=== PATIENT | female | born 1965 | race Caucasian/White ===

== ENCOUNTER 2016-11-30 10:50 | Day surgery (SDC) | payer OTHER ==
[~2016-11-30 10:50] MED LIST: NEXIUM40 PO; NORITATE1% TOP; PROLOP100 PO; PROMETRIUM PO; RETIN A TOP; T PO; VIVELLE SY0.05 MG/24 TOP; X5 PO
[2016-12-09] MEDS ORDERED: COZ50 PO (13:38)
[2016-12-09] MEDS ORDERED: CLARITD PO (13:39)
== END 2016-11-30 13:30 | disposition home or self-care (01) ==
LOC: SDC 10:50
DX: Z53.8 Procedure and treatment not carried out for other reasons (principal); N20.0 Calculus of kidney; E78.5 Hyperlipidemia, unspecified; K21.9 Gastro-esophageal reflux disease without esophagitis; F41.9 Anxiety disorder, unspecified; F32.9 Major depressive disorder, single episode, unspecified; F41.0 Panic disorder [episodic paroxysmal anxiety]; Z87.440 Personal history of urinary (tract) infections; Z88.5 Allergy status to narcotic agent; Z79.899 Other long term (current) drug therapy; Z98.890 Other specified postprocedural states
CPT/HCPCS: 74000; 93005; J2250; J3010

== ENCOUNTER 2016-12-14 16:18 | Day surgery (SDC) | payer OTHER ==
--- NOTE | ~2016-12-14 | OP ---
Record Of Operation [facility] [address] [place]. [address] NAME: RL RODGERS : 67 STATUS : REG [facility]#: [id number] AGE: 51 ADM/REG DATE : 12/14/16 MR#: [id number] REPORT SERV DATE: 12/14/16 DICTATED BY: KELVIN MORAN JR. DATE: 12/14/16 REPORT STATUS : Draft TRANSCRIBED BY: MODL DATE: 12/14/16 DATE OF PROCEDURE: 12/14/2016 SURGEON: Kelvin Moran M.D. PREOPERATIVE DIAGNOSIS: Left renal pelvic stone 1 cm in size. POSTOPERATIVE DIAGNOSIS: Left renal pelvic stone 1 cm in size. PROCEDURE PERFORMED: Cystoscopy, left retrograde pyelogram, dilation of left ureteral orifice, left ureteroscopy, with laser ablation of left renal stone, and double-J stent placement. COMPLICATIONS: None. CONSULTATIONS: None. ANESTHESIA: General with a laryngeal mask airway. SPECIMENS: Renal stone fragments. DRAINS: 6 x 26 cm [place] inlay stent without string. ESTIMATED BLOOD LOSS: None. INDICATION: Mrs. Rodgers is a 51-year-old female, who was found to have a radiopaque 1 cm renal pelvic stone. We attempted two times to do lithotripsy, however, her blood pressure is been poorly controlled even with continued medical management. She is seen her PCP recently and is still been unable to get her blood pressure down and to a reasonable level for lithotripsy. Her blood pressure today was on average diastolic of 100, due to the fact that she has been having continued pain off and on with this stone, we decided to change the procedure to ureteroscopic stone management, with laser ablation of the stone. PROCEDURE IN DETAIL: After the patient was identified, and proper informed consent was obtained, she was taken to the operating room. General anesthesia was performed without complication using a laryngeal mask airway. She was then prepped and draped in normal sterile fashion in the lithotomy position. Cystoscopic examination of the urethra and bladder were found to be normal. The left ureteral orifice was cannulated with a 5-[place] open-ended catheter. Retrograde pyelogram was performed. [employer] film shows the radiopaque stone 1 cm in the renal pelvis. The retrograde shows a normal course and caliber to the ureter, but somewhat bifid renal pelvis. The stone was sitting in the center of that bifid renal pelvis. A guidewire was advanced through the open-ended catheter up to the renal pelvis, and using a ureteral access sheath, I dilated the ureteral orifice to 14-[place]. Flexible ureteroscopy was then performed and the stone was visualized. She had a good bit of edematous change and loose old clot in the collecting system that made it somewhat difficult to visualize the stone. However, one side of the stone was readily visible. Record Of Operation [facility] [address] [place] [address] [place] [address] NAME: RL RODGERS : 67 STATUS : REG [facility] PAT#: [id number] AGE: 51 ADM/REG DATE : 12/14/16 MR#: [id number] REPORT SERV DATE: 12/14/16 DICTATED BY: KELVIN MORAN JR. DATE: 12/14/16 REPORT STATUS : Draft TRANSCRIBED BY: PAULINE DATE: 12/14/16 Using a 200 micron Holmium laser fiber on the dusting setting, I then began fragmenting the stone. The stone seemed to fragment reasonably easily and come apart in small pieces that were sand or fairly bigger in size, as the stone fragmented the visibility as expected got somewhat more difficult, I had to stop several times to flush the kidney out, and pull out some of the fleshy clot pieces using the NGage basket. I then eventually was able to see the remaining portion of the stone, placed it into a mid pole calyx, and then fragmented into very small pieces. I inspected each of the calices individually and did not note any stone fragments that were large enough to be concerned about. I did remove several pieces that were less than a millimeter in size with a NGage basket with some difficulty. These were sent for stone analysis. The ureteroscope was then removed and as well as the ureteral sheath. I then deployed a 6 x 26 cm [place] inlay stent without string. I will see her back in the office in one week with a KUB for double-J stent removal. BOY/PAULINE Kelvin Moran Jr., M.D. / [id number] CC: Keke Lam Jr., M.D.
[~2016-12-14 16:18] MED LIST changes: +CLARITD PO; +COZ50 PO
[2016-12-19 16:58] LABS: STONE COMPOSITION TWO DNR (())
== END 2016-12-14 20:07 | disposition home or self-care (01) ==
LOC: SDC 16:18
PROVIDERS: Urology
PROC: 0T778DZ Dilation of Left Ureter with Intraluminal Device, Via Natural or Artificial Opening Endoscopic (ICD-10-PCS; 2016-12-14)
PROC: 0TF48ZZ Fragmentation in Left Kidney Pelvis, Via Natural or Artificial Opening Endoscopic (ICD-10-PCS; principal; 2016-12-14 13:00)
DX: N20.0 Calculus of kidney (principal); I10 Essential (primary) hypertension; K21.9 Gastro-esophageal reflux disease without esophagitis; L71.9 Rosacea, unspecified; F41.0 Panic disorder [episodic paroxysmal anxiety]; Z88.5 Allergy status to narcotic agent; Z98.891 History of uterine scar from previous surgery; Z98.890 Other specified postprocedural states; R42 Dizziness and giddiness; Z79.899 Other long term (current) drug therapy
CPT/HCPCS: 74000; 74420; 82365; 82962; A9270-GY; C1758; C1769; C1894; C2617; J2250; J2405; J2710; J3010; Q9967